=== PATIENT | male | born 1955 | race Caucasian/White ===

== ENCOUNTER → 2017-09-04 | Outpatient (CLI) | payer MEDICAID ==
[~2017-09-04] MED LIST: ACET325T14 PO; ALBU2.5V NPPB; ALLO100T30 PO; ALLO300T PO; AMIO200T42 PO; ASPI-515 PO; ASPI-621 PO; ATOR40TA PO; ATOR40TA78 PO; BISA10SU65 PR; BUDE10.2 INH; BUDE10.22 INH; CARV6.2512 PO; CARV6.252 PO; CLOP75TA PO; CLOP75TA52 PO; DOCU-131 PO; ENAL10TA PO; ENAL5TAB PO; ENOX40SY4 SQ; ERGO500017 PO; FOLI-17 PO; FURO10VI37 IV; FURO20TA3 PO; FURO40TA6 PO; HYDR-3307 PO; IPRA3AMP NPPB; LISI-167 PO; LISI5TAB7 PO; METO25TA91 PO; METO50TA82 PO; OXYC5TAB3 PO; PANT40VI IVPush; POTA10TA11 PO; POTA20TA14 PO; SENN1TAB7 PO; SPIR25TA PO; SPIR25TA3 PO; TICA90TA PO
== END | disposition home or self-care (01) ==
LOC: CVU 08:19
PROVIDERS: ATTEND Internal Medicine Cardiovascular Disease
DX: I35.1 Nonrheumatic aortic (valve) insufficiency (principal); I25.5 Ischemic cardiomyopathy; I10 Essential (primary) hypertension; G47.30 Sleep apnea, unspecified; E66.9 Obesity, unspecified; Z95.1 Presence of aortocoronary bypass graft; Z98.890 Other specified postprocedural states
CPT/HCPCS: 78472; 93306; A9560

== ENCOUNTER 2017-09-22 05:58 | Observation (INO) | payer MEDICAID ==
[~2017-09-22] VITALS: Ht 193 cm; Wt 153.4 kg
[2017-09-22] MEDS: SODIUM CHLORIDE 0.9% 1,000 ML IV SCH ×3 (06:06→22:06)
[2017-09-22 06:10] VITALS: BP 90/52
[2017-09-22] MEDS ORDERED: AMIO200T42 PO (06:26)
[2017-09-22] MEDS ORDERED: LOSA25TA5 PO (06:26)
[2017-09-22] MEDS ORDERED: FURO40TA6 PO (06:26)
[2017-09-22] MEDS ORDERED: CARV6.2512 PO ×2 (06:26)
[2017-09-22] MEDS ORDERED: SPIR25TA3 PO (06:26)
[2017-09-22] MEDS ORDERED: APIX5TAB PO (06:26)
[2017-09-22] MEDS ORDERED: CEFAZOLIN PMX 1GM/50ML 50 ML IVPB ONE (06:30)
[2017-09-22 06:55] LABS: BASOPHILS # (AUTO) 0.03 x10^3/uL (0-0.1); BASOPHILS % (AUTO) 1 % (0-1); EOSINOPHILS # (AUTO) 0.15 x10^3/uL (0-0.4); EOSINOPHILS % (AUTO) 2 % (1-7); LYMPHOCYTES % (AUTO) 17 % (22-44); MD NO; MEAN CORPUSCULAR HEMOGLOBIN 31.3 pg (27.5-34.5); MEAN CORPUSCULAR HGB CONC 33.3 g/dL (33.2-36.2); MEAN CORPUSCULAR VOLUME 94.2 fL (81-97); MEAN PLATELET VOLUME 8.7 fL (7.4-10.4); MONOCYTES # (AUTO) 0.48 x10^3/uL (0.2-0.8); MONOCYTES % (AUTO) 6 % (2-9); NEUTROPHILS # (AUTO) 5.54 x10^3/uL (1.8-6.8); NEUTROPHILS % (AUTO) 74 % (42-75); PLATELET COUNT 196 x10^3/uL (130-400); RED BLOOD COUNT 4.09 x10^6/uL (4.38-5.82); RED CELL DISTRIBUTION WIDTH 17.4 % (9.4-14.8)
[2017-09-22] MEDS ORDERED: FENTANYL PF 250 MCG/5ML ONE (07:23)
[2017-09-22] MEDS ORDERED: MIDAZOLAM 1 MG/ML, 2ML ONE (07:43)
[2017-09-22] MEDS ORDERED: PROPOFOL 10 MG/ML, 20ML ONE (08:30)
[2017-09-22] MEDS ORDERED: SUCCINYLCHOLINE 20 MG/ML, 10ML ONE (08:30)
[2017-09-22] MEDS ORDERED: ONDANSETRON 2MG/ML, 2ML ONE (08:30)
[2017-09-22] MEDS ORDERED: CEFAZOLIN 1,000 MG ONE ×2 (08:30→08:45)
[2017-09-22] MEDS ORDERED: EPINEPHRINE 1 MG/ML, 1ML ONE (08:30)
[2017-09-22] MEDS ORDERED: DEXAMETHASONE 4 MG/ML, 1ML ONE (08:30)
[2017-09-22] MEDS ORDERED: LIDOCAINE 2%, 20ML ONE (08:52)
[2017-09-22] MEDS ORDERED: LORazepam 2 MG/ML, 1ML IVPush PRN (11:00)
[2017-09-22] MEDS ORDERED: OXYcodone 5 MG/5 ML ORAL.SOL UDC PO PRN (11:00)
[2017-09-22] MEDS ORDERED: FENTANYL PF 100 MCG/2ML IV PRN (11:00)
[2017-09-22] MEDS ORDERED: ONDANSETRON 2MG/ML, 2ML IVPush PRN (11:00)
[2017-09-22] MEDS ORDERED: MEPERIDINE/PF 25MG/0.5ML IVPush PRN (11:00)
[2017-09-22] MEDS ORDERED: PROMETHAZINE 25 MG/ML, 1ML IV PRN (11:00)
[2017-09-22] MEDS ORDERED: PROMETHAZINE 12.5 MG SUPP PR PRN (11:00)
[2017-09-22] MEDS ORDERED: HYDROcodone/APAP 5/325 TABLET PO PRN (11:00)
[2017-09-22] MEDS ORDERED: morphine SULFATE 10 MG/ML, 1ML IV PRN (11:00)
[2017-09-22] MEDS ORDERED: MIDAZOLAM 1 MG/ML, 2ML IV PRN (11:00)
[2017-09-22] MEDS ORDERED: ACETAMINOPHEN 325 MG TABLET PO PRN (11:00)
[2017-09-22 16:12] VITALS: BP 83/66
[2017-09-22] MEDS: CEFAZOLIN PMX 1GM/50ML 50 ML IVPB SCH (17:42)
[2017-09-22 19:23] VITALS: BP 95/58
[2017-09-22] MEDS ORDERED: ATORVASTATIN 40 MG TABLET PO SCH (21:00)
[2017-09-22] MEDS: CARVEDILOL 6.25 MG TABLET PO SCH (21:19)
[2017-09-22] MEDS: APIXABAN 5 MG TABLET PO SCH (21:21)
[2017-09-22] MEDS: DOCUSATE 100 MG CAPSULE PO SCH (21:21)
[2017-09-22] MEDS: FUROSEMIDE 40 MG TABLET PO SCH (21:21)
[2017-09-23 01:39] VITALS: BP 101/64
[2017-09-23] MEDS: CEFAZOLIN PMX 1GM/50ML 50 ML IVPB SCH (02:09)
[2017-09-23] MEDS: SODIUM CHLORIDE FLUSH 10ML SYR IVF SCH ×2 (02:10→09:00)
[2017-09-23] MEDS: SODIUM CHLORIDE 0.9% 1,000 ML IV SCH (06:06)
[2017-09-23 07:18] VITALS: BP 99/64
[2017-09-23] MEDS ORDERED: SPIRONOLACTONE 25 MG TABLET PO SCH (09:00)
[2017-09-23] MEDS ORDERED: AMIODARONE 200 MG TABLET PO SCH (09:00)
[2017-09-23] MEDS ORDERED: ASPIRIN 81 MG TABLET EC PO SCH (09:00)
[2017-09-23] MEDS ORDERED: LOSARTAN 25MG TABLET PO SCH (09:00)
[2017-09-23] MEDS ORDERED: ACET-76 PO (09:51)
[2017-09-23] MEDS: APIXABAN 5 MG TABLET PO SCH (09:55)
[2017-09-23] MEDS: DOCUSATE 100 MG CAPSULE PO SCH (09:55)
[2017-09-23] MEDS: FUROSEMIDE 40 MG TABLET PO SCH (09:56)
[2017-09-23 10:01] VITALS: BP 96/61
[2017-09-23 10:05] VITALS: BP 100/66
[2017-09-23] MEDS: CARVEDILOL 6.25 MG TABLET PO SCH (10:13)
== END 2017-09-23 17:53 | disposition home or self-care (01) ==
LOC: CACL 05:58 → ORIP 10:37 → 5SO 15:31
PROVIDERS: ADMIT Internal Medicine Cardiovascular Disease; ATTEND Internal Medicine Cardiovascular Disease
DX: I25.5 Ischemic cardiomyopathy (principal); I48.92 Unspecified atrial flutter; I48.2 Chronic atrial fibrillation; I49.01 Ventricular fibrillation
CPT/HCPCS: 33225; 33249; 36415; 71045; 85025; 93641; 96365; 96375; C1769; C1779; C1882; C1887; C1892; C1895; C1900; G0378; J0171; J0330; J0690; J1100; J2250; J2405; J2704; J3010; J3490; Q9967